=== PATIENT | male | born 1965 | race Caucasian/White ===

== ENCOUNTER 2016-11-27 07:47 | Inpatient (IN) | payer BC ==
[~2016-11-27] VITALS: Ht 167.6 cm; Wt 92.5 kg
[~2016-11-27 07:47] MED LIST: AMBIEN DPS10 MG PO; ASA CHILDREN'S81 MG PO; ASPIR 8181 MG PO; BRILINTA90 MG PO; COREG DPS6.25 MG PO; CRESTOR40 MG PO; GLUCOPHAGE-DPS500 MG PO; HYDROCODONE 5MG/5 MG PO; LEXAPRO DPS10 MG PO; LEXAPRO DPS20 MG PO; NITROSTAT0.4 MG SL; NORCO 7.5-3251 EACH PO; NORVASC5 MG PO; PROTONIX40 MG PO; RANEXA1000 MG PO; TOUJEO SOL300 UNIT/1 SQ
--- NOTE | 2016-11-30 13:10 | ER ---
ADMIT: 11/27/2016 RM/LOC: 529 [facility] MR#: [id number] [address] [address] BRIEN JACKIE P[place] [address] [place] [address] Emergency Room Report SEX: M AGE: 51 : 1965 DATE: 11/27/2016 This 51-year-old gentleman comes to the Emergency Department with severe diarrhea and vomiting times the past several hours. He has had numerous stools, unable to count. He has had 4 episodes of vomiting. PAST MEDICAL HISTORY: Cardiac disease, stents, bypass, hypertension, hyperlipidemia, diabetes. LIMITED PHYSICAL EXAMINATION: GENERAL: Reveals a 51-year-old, pleasant gentleman, very uncomfortable saying he needed to use the restroom right away. LUNGS: Clear to auscultation. CARDIAC: No murmur. Rapid rate. ABDOMEN: Hyperactive bowel tones. No tenderness, no guarding, no rebound. EXTREMITIES: Unremarkable. LABORATORY DATA: CBC and CMP within normal limits. CT scan of the abdomen revealed a diffuse gastroenteritis. Patient was being admitted with intractable diarrhea. Jama Frias MD/ tracey JOB #: [id number] CC: Nathaniel Dietz MD, Attending Physician Nathaniel Dietz MD, Family Physician
[2016-12-01] MEDS ORDERED: TYLENOL DPS325 MG PO (06:07)
[2016-12-01] MEDS ORDERED: ZESTRIL DPS20 MG PO (06:07)
[2016-12-01] MEDS ORDERED: METFORMIN HCL500 M2 PO (06:08)
--- NOTE | 2016-12-01 07:26 | HP ---
ADMIT: 11/27/2016 RM/LOC: 529 [facility] MR#: [id number] [address] [address] JACKIE TESFAYE [address] [place] [address] History and Physical SEX: M AGE: 51 : 1965 DATE OF SERVICE: CHIEF COMPLAINT: Nausea, vomiting, and diarrhea. HISTORY OF PRESENT ILLNESS: The patient is a very pleasant, 51-year-old male with past medical history of coronary artery disease, status post 6-vessel CABG and repeat stenting as recently as 10/02/2016, hypertension, hyperlipidemia, and insulin-dependent type 2 diabetes mellitus too who is presenting with sudden onset of nausea, vomiting, and diarrhea. He reports beginning at 11 p.m. last night, he had sudden onset of symptoms which were uncontrolled throughout the night. He reports vomiting as frequently as every 15 minutes with stools as often as every 10 minutes and who presented to the emergency room. He denies any fever, significant abdominal pain, hematemesis, hematochezia, or melena. He denies any known sick contacts. He does report that he had a foul-tasting hamburger yesterday though is unsure if that is the cause of the symptoms. Upon presentation to the emergency room, patient was hemodynamically stable, but dehydrated from large volume of emesis and stools. His nausea responded well to Zofran, however, he continued to have frequent incontinence of stools. He denies any recent antibiotic use. Workup including a CBC, C. diff and abdominal CT were consistent with gastroenteritis. PAST MEDICAL HISTORY: 1. Coronary artery disease, status post CABG in 2012 with stenting as recently as 10/02/2016. 2. Diabetes mellitus type 2. 3. Hypertension. 4. Hyperlipidemia. 5. Gastroesophageal reflux disease. 6. Depression. 7. CABG. PAST SURGICAL HISTORY: Multiple musculoskeletal injuries including neck, left ankle, right ankle, and right foot. MEDICATIONS: 1. Aspirin 81 mg p.o. daily. 2. Escitalopram 10 mg p.o. daily. 3. Brilinta 90 mg b.i.d. 4. Ranexa 1000 mg p.o. b.i.d. 5. Pantoprazole 40 mg p.o. b.i.d. 6. Carvedilol 6.25 mg p.o. b.i.d. 7. Metformin ER 500 mg p.o. b.i.d. 8. Rosuvastatin 40 mg p.o. nightly. 9. Zolpidem 10 mg p.o. nightly. 10.Lisinopril 20 mg p.o. nightly. 11.Toujeo 300 units subcutaneously nightly. ALLERGIES: HYDROMORPHONE WHICH CAUSES NAUSEA. ADMIT: 11/27/2016 RM/LOC: 529 [facility] MR#: [id number] [address] [address] JACKIE TESFAYE [address] [place] [address] History and Physical SEX: M AGE: 51 : 1965 FAMILY HISTORY: The patient's father had pancreatic cancer and grandfather had an unknown form of cancer. He also has grandparents with coronary artery disease, diabetes, and hypertension. SOCIAL HISTORY: The patient reports he is a previous smoker. He smoked one pack a day for 20 years, but quit in 2012. He reports occasional alcohol use. Denies any herbs, supplements, or illicit drug use. REVIEW OF SYSTEMS: A 10-point review of systems was obtained and negative except as noted in the HPI. PHYSICAL EXAMINATION: VITAL SIGNS: Unavailable for review at this time, but were within normal limits on presentation. GENERAL: Alert and oriented sitting in bed, in no acute distress. Patient appears comfortable. HEENT: Head is normocephalic and atraumatic. Pupils are equal, round, and reactive to light and accommodation. Extraocular muscles are intact. Mucous membranes are dry. HEART: Regular rate and rhythm without appreciable murmur. LUNGS: Clear to auscultation bilaterally without wheeze, rhonchi, or rales. ABDOMEN: Soft, nontender to palpation bowel sounds currently normoactive. EXTREMITIES: With no appreciable peripheral edema. PSYCH: Normal mood and affect. OBJECTIVE DATA: WBC 9.0, hemoglobin 16.4, and platelets 230. Sodium 137, potassium 3.6, carbon dioxide 23, creatinine 1.4, BUN 20, glucose 185. C. diff PCR not detected. Enteric pathogen panel pending. Abdominal CT with probable diffuse gastroenteritis with contrast enhancement of the mucosa of the stomach. ADMIT: 11/27/2016 RM/LOC: 529 [facility] MR#: [id number] [address] [address] JACKIE TESFAYE [facility] [place] [address] History and Physical SEX: M AGE: 51 : 1965 ASSESSMENT: 1. Nausea, vomiting, and diarrhea likely secondary to gastroenteritis. 2. Coronary artery disease. 3. Hypokalemia. 4. Type 2 diabetes mellitus. 5. Hypertension. PLAN: Admit the patient and continue fluid replacement with IV hydration. We will continue Zofran as needed for nausea and vomiting and may use Imodium as needed for loose stools as infectious workup is negative. We will continue to monitor for new or worsening symptoms including fever or abdominal pain. We will provide Desitin cream for local irritation due to loose stools. Kimberley Escobar MD Resident / Nathaniel Dietz MD / modl JOB #: [id number] CC: Nathaniel Dietz MD, Attending Physician Nathaniel Dietz MD, Family Physician
--- NOTE | 2016-12-11 11:43 | DS ---
ADMIT: 11/27/2016 RM/LOC: 529 [facility] MR#: [id number] [address] [place] [place], [place] [address] JACKIE TESFAYE [address] [place] [address] General Discharge Summary SEX: M AGE: 51 : 1965 ADMISSION DATE: 11/27/2016 DISCHARGE DATE: 11/30/2016 ADMISSION DIAGNOSIS: Gastroenteritis. DISCHARGE DIAGNOSIS: Rotavirus gastroenteritis. SECONDARY DIAGNOSES: Hypokalemia, insulin-dependent diabetes mellitus type 2, coronary artery disease, hypertension, hyperlipidemia, gastroesophageal reflux disease, major depressive disorder. CONSULTATIONS: None. PROCEDURES: None. HISTORY OF PRESENT ILLNESS: The patient presented to the emergency room with 12 hours of severe nausea, vomiting, and diarrhea. No known fevers at home and no abdominal pain, hematemesis, hematochezia, or melena. He had no known sick contacts. HOSPITAL COURSE: Stool pathogen panel was positive for rotavirus. The patient continued to have large volume of stool output, though his nausea was well controlled with oral Zofran. His KELLY inhibitor was held and he was managed with supportive cares. He did require some potassium repletion but did not have any severe electrolyte disturbances. He did have a fever while in the hospital, which is consistent with his diagnosis. On hospital day #3, the patient was able to take a liter of oral intake without vomiting and had some decrease to his stool output. He felt that he would be able to manage his symptoms at home. DISCHARGE MEDICATIONS: 1. Ambien 10 mg p.o. daily. 2. Aspirin 81 mg p.o. daily. 3. Brilinta 90 mg p.o. b.i.d. 4. Coreg 6.25 p.o. b.i.d. 5. Lexapro 10 mg p.o. daily. 6. Protonix 40 mg p.o. b.i.d. ADMIT: 11/27/2016 RM/LOC: 529 [facility] MR#: [id number] [address] [facility] [address] [place], [place] [address] JACKIE TESFAYE [address] [place] [address] General Discharge Summary SEX: M AGE: 51 : 1965 7. Ranexa 1000 mg p.o. b.i.d. 8. Tylenol 650 mg p.o. q.4 hours p.r.n. pain. 9. Toujeo 34 units at bedtime subcutaneous. Medication changes during hospitalization: The patient was instructed to hold his metformin and lisinopril until improvement in symptoms. CONDITION ON DISCHARGE: Improving. DISPOSITION: Home. FOLLOWUP: Follow up with Dr. Cote on 12/03/2016. Kimberley Escobar MD Resident / Nathaniel Dietz MD / tracey JOB #: [id number] CC: Nathaniel Dietz MD, Attending Physician Nathaniel Dietz MD, Family Physician
[2017-02-22] MEDS ORDERED: LEXAPRO DPS10 MG PO (16:58)
[2017-02-22] MEDS ORDERED: COREG DPS12.5 MG PO (16:58)
[2017-02-22] MEDS ORDERED: RANEXA500 MG PO (16:58)
[2017-02-22] MEDS ORDERED: BRILINTA90 MG PO (16:58)
[2017-02-22] MEDS ORDERED: PROTONIX40 MG PO (16:58)
[2017-02-22] MEDS ORDERED: ASA CHILDREN'S81 MG PO (16:58)
[2017-02-22] MEDS ORDERED: ZESTRIL DPS5 MG PO (16:59)
[2017-02-22] MEDS ORDERED: GLUCOPHAGE XR500 MG PO (16:59)
[2017-02-22] MEDS ORDERED: CRESTOR40 MG PO (16:59)
[2017-02-22] MEDS ORDERED: TOUJEO SOL300 UNIT/1 SQ (16:59)
[2017-02-22] MEDS ORDERED: AMBIEN DPS10 MG PO (16:59)
== END 2016-11-30 10:36 | disposition home or self-care (01) | DRG 392 ==
LOC: ER 07:47 → 5MS 13:30
PROVIDERS: ADMIT Family Medicine
DX: A08.0 Rotaviral enteritis (principal); I10 Essential (primary) hypertension; E86.0 Dehydration; E78.5 Hyperlipidemia, unspecified; E11.9 Type 2 diabetes mellitus without complications; E87.6 Hypokalemia; I25.10 Atherosclerotic heart disease of native coronary artery without angina pectoris; K21.9 Gastro-esophageal reflux disease without esophagitis; F32.9 Major depressive disorder, single episode, unspecified; Z79.82 Long term (current) use of aspirin; Z82.49 Family history of ischemic heart disease and other diseases of the circulatory system; Z87.891 Personal history of nicotine dependence; Z95.1 Presence of aortocoronary bypass graft; Z79.4 Long term (current) use of insulin; Z95.5 Presence of coronary angioplasty implant and graft

== ENCOUNTER 2017-02-20 17:21 | Observation (INO) | payer BC ==
[~2017-02-20 17:21] MED LIST changes: +METFORMIN HCL500 M2 PO; +TYLENOL DPS325 MG PO; +ZESTRIL DPS20 MG PO
[2017-02-22] MEDS ORDERED: PROTONIX40 MG PO (16:58)
[2017-02-22] MEDS ORDERED: ASA CHILDREN'S81 MG PO (16:58)
[2017-02-22] MEDS ORDERED: BRILINTA90 MG PO (16:58)
[2017-02-22] MEDS ORDERED: COREG DPS12.5 MG PO (16:58)
[2017-02-22] MEDS ORDERED: LEXAPRO DPS10 MG PO (16:58)
[2017-02-22] MEDS ORDERED: RANEXA500 MG PO (16:58)
[2017-02-22] MEDS ORDERED: AMBIEN DPS10 MG PO (16:59)
[2017-02-22] MEDS ORDERED: ZESTRIL DPS5 MG PO (16:59)
[2017-02-22] MEDS ORDERED: TOUJEO SOL300 UNIT/1 SQ (16:59)
[2017-02-22] MEDS ORDERED: GLUCOPHAGE XR500 MG PO (16:59)
[2017-02-22] MEDS ORDERED: CRESTOR40 MG PO (16:59)
== END 2017-02-21 12:05 | disposition home or self-care (01) ==
DX: I25.119 Atherosclerotic heart disease of native coronary artery with unspecified angina pectoris (principal); E11.9 Type 2 diabetes mellitus without complications; I10 Essential (primary) hypertension; E78.5 Hyperlipidemia, unspecified; Z87.891 Personal history of nicotine dependence; Z98.1 Arthrodesis status; Z98.890 Other specified postprocedural states; Z79.82 Long term (current) use of aspirin; Z79.899 Other long term (current) drug therapy